=== PATIENT | female | born 1970 | race Caucasian/White ===

== ENCOUNTER → 2017-01-16 | Outpatient (CLI) | payer BC ==
--- NOTE | ~2017-01-16 | PUL ---
PATIENT'S NAME: BETZAIDA BRANDT [facility] AGE: 46 Y [address] ROOM: [place] [address] LOCATION: [facility] ADMIT DATE: 01/16/2017 Pulmonary DISCHARGE DATE: FAMILY PHYSICIAN: Prabhakar Escobedo MD ATTENDING PHYSICIAN: Prabhakar Escobedo NAME OF PROCEDURE: Sleep Study PROCEDURE DATE: January 16, 2017 TECH: Isabelle Vidal, AGRICULTURAL TECHNICAL OFFICER TEST #: [facility] [place]# [id number] TECHNICAL PARAMETERS: The patient was studied using International 10/20 measuring system. While the patient was studied, there was continuous monitoring of EEG (8 leads), EOG (2 leads), EKG (3 leads), submental EMG (3 leads), tibial (4 leads), respiratory inductive plethysmography (RIP) for thoracic and abdominal effort, oral and nasal airflow with a thermocouple and pressure transducer, and oximetry. The windshield repair technician also performed visual and auditory observations noting things like body position, patient's status, breath sounds, artifact, snoring level and patient comments. Continuous sound was monitored using a 2-way speaker system and video monitoring was performed using an infrared camera. Review of the entire study was performed epoch by epoch utilizing a single epoch and multiple epoch capability sleep system. MEDICAL HISTORY: The patient is a 46-year-old woman with daytime sleepiness and snoring. SLEEP STAGE SUMMARY: The patient was studied for 518 minutes which she slept 476 minutes. She fell asleep in 18 minutes and slept for 92% of the night. Sleep architecture revealed a mild decline in slow wave sleep. RESPIRATORY SUMMARY: Oxygen saturations ranged from 84-90. 5%. There were 2 apneas and three hypopneas for an apnea/hypopnea index normal. At less than. One event per hour. EKG SUMMARY: Average heart rate 85 beats per minute. No dysrhythmias were noted. LIMB MOVEMENT SUMMARY: Periodic limb movements were noted early in the study at a rate of 24 events per hour overall. The majority these were not associated with arousals and after the first 2 hours there were very few limb movements. PATIENT'S NAME: BETZAIDA BRANDT [facility] AGE: 46 Y [address] ROOM: [place] [address] LOCATION: [facility] ADMIT DATE: 01/16/2017 Pulmonary DISCHARGE DATE: FAMILY PHYSICIAN: Prabhakar Escobedo MD ATTENDING PHYSICIAN: Prabhakar Escobedo SUMMARY: No evidence of obstructive sleep apnea. At worst mild periodic limb movement disorder. PLAN: Patient will receive results from the ordering provider. MD WALKER SOTO/ /[id number] dtt: 02/05/17 1429 , Krystian [place]. dtd: 01/23/17 1354
== END | disposition disaster alternative care site (69) ==
LOC: GSLP 20:38
DX: G47.00 Insomnia, unspecified (principal); G47.61 Periodic limb movement disorder